=== PATIENT | male | born 1945 | race Hispanic/Latino ===

== ENCOUNTER 2019-07-02 13:39 | Emergency (ER) | payer OTHER | END 2019-07-02 16:31 | disposition home or self-care (01) | LOC: EDH 13:39 | DX: S83.92XA Sprain of unspecified site of left knee, initial encounter (principal); S70.02XA Contusion of left hip, initial encounter; S50.12XA Contusion of left forearm, initial encounter; E11.9 Type 2 diabetes mellitus without complications; I10 Essential (primary) hypertension; Z85.46 Personal history of malignant neoplasm of prostate; W18.39XA Other fall on same level, initial encounter; Y93.89 Activity, other specified; Y92.89 Other specified places as the place of occurrence of the external cause; Y99.8 Other external cause status | CPT/HCPCS: 29505; 73090; 73502; 73562 ==

== ENCOUNTER 2020-03-28 12:43 | Observation (INO) | payer OTHER, MEDICARE ==
[~2020-03-28] VITALS: Ht 182.9 cm; Wt 108.9 kg
[2020-03-28 13:05] LABS: BASOPHILS % (AUTO) 0.9 % (0.0-5.0); EOSINOPHILS % (AUTO) 4.5 % (0.0-8.0); HEMATOCRIT 42.3 % (42-54); LYMPHOCYTES % (AUTO) 33.3 % (21.0-51.0); MEAN CORPUSCULAR HEMOGLOBIN 29.1 pg (27.0-33.0); MEAN CORPUSCULAR HGB CONC 32.9 g/dL (32.0-36.0); MEAN CORPUSCULAR VOLUME 88.7 fL (79-99); MONOCYTES % (AUTO) 10.2 % (3.0-13.0); NEUTROPHILS % (AUTO) 50.9 % (40.0-77.0); PLATELET COUNT (AUTO) 242 K/uL (130-400); RED BLOOD CELL COUNT(AUTO) 4.77 MIL/uL (4.50-6.20); RED CELL DISTRIBUTION WIDTH 13.5 % (11.0-15.5); WHITE BLOOD COUNT (AUTO) 4.6 K/uL (4.8-10.8)
[2020-03-28] MEDS ORDERED: ASPIRIN 81MG CHEW TAB ONE (13:09)
[2020-03-28 13:28] LABS: CREATININE 1.2 mg/dL (0.5-1.5); POTASSIUM 4.2 mmol/L (3.5-5.1)
[2020-03-28 13:29] LABS: PROTHROMBIN TIME 10.9 SEC (9.6-11.6)
[2020-03-28 13:30] LABS: PARTIAL THROMBOPLASTIN TIME 26.6 SEC (26.3-35.5)
[2020-03-28 13:33] LABS: ALBUMIN 3.5 g/dL (3.5-5.0); BILIRUBIN,TOTAL 0.6 mg/dL (0.2-1.0); TOTAL PROTEIN, SERUM 6.7 g/dL (6.0-8.3)
[2020-03-28 13:41] LABS: B-TYPE NATRIURETIC PEPTIDE 34 pg/mL (0-100)
[2020-03-28] MEDS ORDERED: NITROGLYCERIN 1GM OINT 1 INCH/1GM TD ONE (14:16)
[2020-03-28] MEDS ORDERED: MORPHINE 2 MG SYG IVP PRN (15:30)
[2020-03-28] MEDS ORDERED: HYDRALAZINE 20MG/ML VIAL IV ONE (15:30)
[2020-03-28] MEDS ORDERED: DEXTROSE 50%-WATER 50 ML DISP.SYRIN IV PRN (15:30)
[2020-03-28] MEDS ORDERED: GLUCAGON 1MG KIT 1 MG ML IM PRN (15:30)
[2020-03-28] MEDS ORDERED: NITROGLYCERIN 1GM OINT 1 INCH/1GM TD SCH (15:30)
[2020-03-28] MEDS ORDERED: INSULIN HUMULIN R 100 UNIT/ML 3ML SQ SCH (16:30)
[2020-03-28 18:46] LABS: TROPONIN I 0.09 ng/mL (0.00-0.06)
[2020-03-29 01:50] LABS: HEMATOCRIT 40.2 % (42-54); MEAN CORPUSCULAR HEMOGLOBIN 29.5 pg (27.0-33.0); MEAN CORPUSCULAR HGB CONC 32.8 g/dL (32.0-36.0); MEAN CORPUSCULAR VOLUME 89.9 fL (79-99); RED BLOOD CELL COUNT(AUTO) 4.47 MIL/uL (4.50-6.20); RED CELL DISTRIBUTION WIDTH 13.8 % (11.0-15.5)
[2020-03-29 02:06] LABS: ALBUMIN 3.1 g/dL (3.5-5.0); BILIRUBIN,TOTAL 0.5 mg/dL (0.2-1.0); MAGNESIUM 2.2 mg/dL (1.80-2.40); POTASSIUM 3.9 mmol/L (3.5-5.1)
[2020-03-29] MEDS ORDERED: ATOR40TA71 PO (06:15)
[2020-03-29] MEDS ORDERED: ASPIRIN 81MG CHEW TAB PO SCH (09:00)
[2020-03-29] MEDS ORDERED: ENOXAPARIN SODIUM 40 MG/0.4 ML SYRINGE SQ SCH (09:00)
[2020-06-23] MEDS ORDERED: INSU3INS3 SQ (08:57)
[2020-06-23] MEDS ORDERED: METO-408 PO (08:57)
[2020-06-23] MEDS ORDERED: LOSA100T58 PO (08:57)
[2020-06-23] MEDS ORDERED: ASPI-449 PO (08:57)
[2020-06-23] MEDS ORDERED: METF-446 PO (08:57)
[2020-06-23] MEDS ORDERED: SEMA1PEN3 SQ (11:10)
[2020-06-23] MEDS ORDERED: OXYB-66 PO (11:10)
[2020-07-01] MEDS ORDERED: CLOP75TA14 PO (09:23)
[2020-07-01] MEDS ORDERED: LOSA25TA41 PO (09:23)
[2020-07-01] MEDS ORDERED: FURO20TA6 PO (09:23)
[2020-07-01] MEDS ORDERED: POTA-10 PO (09:26)
== END 2020-03-29 07:55 | disposition home or self-care (01) ==
LOC: EDH 12:43 → EDHIP 12:44 → INTOOBSV 12:44
PROVIDERS: ADMIT Internal Medicine; ATTEND Internal Medicine
DX: R07.89 Other chest pain (principal); E11.9 Type 2 diabetes mellitus without complications; E66.9 Obesity, unspecified; I10 Essential (primary) hypertension; E78.00 Pure hypercholesterolemia, unspecified; Z85.46 Personal history of malignant neoplasm of prostate; Z90.79 Acquired absence of other genital organ(s); Z79.82 Long term (current) use of aspirin; Z79.899 Other long term (current) drug therapy; Z68.32 Body mass index [BMI] 32.0-32.9, adult
CPT/HCPCS: 36415 ×2; 71045; 80053 ×2; 80061; 82550 ×2; 82948; 83036; 83735; 83874; 83880; 84484 ×3; 85025; 85027; 85610; 85730; 93005 ×2; 99285; G0378 ×17

== ENCOUNTER → 2020-09-21 | Outpatient (CLI) | payer OTHER ==
[~2020-09-21] MED LIST: ASPI-449 PO; ATOR40TA71 PO; CLOP75TA14 PO; FURO20TA6 PO; INSU3INS3 SQ; LOSA25TA41 PO; METF-446 PO; METO-408 PO; OXYB-66 PO; POTA-9 PO; SEMA1PEN3 SQ
== END | disposition home or self-care (01) ==
LOC: SHCH 15:18
PROVIDERS: ATTEND Internal Medicine Cardiovascular Disease
DX: I51.7 Cardiomegaly (principal); I49.01 Ventricular fibrillation
CPT/HCPCS: 93306; 93356

== ENCOUNTER → 2020-10-10 | Outpatient (CLI) | payer OTHER | END | disposition home or self-care (01) | LOC: RAH 15:20 | PROVIDERS: ATTEND Internal Medicine Cardiovascular Disease | DX: T81.30XD Disruption of wound, unspecified, subsequent encounter (principal); X58.XXXD Exposure to other specified factors, subsequent encounter | CPT/HCPCS: 71250 ==

== ENCOUNTER 2021-05-10 05:44 | Emergency (ER) | payer OTHER ==
[~2021-05-10] VITALS: Ht 182.9 cm; Wt 104.3 kg
[~2021-05-10 05:44] MED LIST changes: +POTA-10 PO; -POTA-9 PO
[2021-05-10] MEDS ORDERED: ONDANSETRON 4MG INJ IVP SCH (07:00)
[2021-05-10] MEDS ORDERED: 0.9% NACL 500ML IV.SOLN 500 ML IV SCH (07:00)
[2021-05-10] MEDS ORDERED: KETOROLAC 15MG/ML VIAL (15MG/ML) IV SCH (07:00)
[2021-05-10] MEDS ORDERED: HYDROCODONE/ACETAMINOPHEN 5/325 MG TAB PO SCH (07:00)
[2021-05-10 07:03] LABS: BASOPHILS % (AUTO) 0.4 % (0.0-5.0); EOSINOPHILS % (AUTO) 1.8 % (0.0-8.0); HEMATOCRIT 45.9 % (42-54); LYMPHOCYTES % (AUTO) 14.3 % (21.0-51.0); MEAN CORPUSCULAR HEMOGLOBIN 29.8 pg (27.0-33.0); MEAN CORPUSCULAR HGB CONC 32.9 g/dL (32.0-36.0); MEAN CORPUSCULAR VOLUME 90.5 fL (79-99); MONOCYTES % (AUTO) 9.1 % (3.0-13.0); NEUTROPHILS % (AUTO) 74.1 % (40.0-77.0); PLATELET COUNT (AUTO) 235 K/uL (130-400); RED BLOOD CELL COUNT(AUTO) 5.07 MIL/uL (4.50-6.20); RED CELL DISTRIBUTION WIDTH 13.5 % (11.0-15.5); WHITE BLOOD COUNT (AUTO) 9.2 K/uL (4.8-10.8)
[2021-05-10 07:20] LABS: ALBUMIN 3.5 g/dL (3.5-5.0); BILIRUBIN,TOTAL 0.6 mg/dL (0.2-1.0); CREATININE 1.1 mg/dL (0.5-1.5); POTASSIUM 4.4 mmol/L (3.5-5.1); TOTAL PROTEIN, SERUM 7.3 g/dL (6.0-8.3)
[2021-05-10] MEDS ORDERED: CLINDAMYCIN IVPB 900MG/50ML 50 ML IV SCH (07:30)
[2021-05-10] MEDS ORDERED: ORPH-43 PO (07:31)
[2021-05-10] MEDS ORDERED: CLIN-141 PO (07:31)
[2021-05-10] MEDS ORDERED: ACET1TAB25 PO (07:31)
[2021-05-10 08:19] VITALS: BP 152/69
== END 2021-05-10 08:28 | disposition home or self-care (01) ==
LOC: EDH 05:44
DX: I88.9 Nonspecific lymphadenitis, unspecified (principal); H66.91 Otitis media, unspecified, right ear; Z20.822 Contact with and (suspected) exposure to COVID-19; I25.10 Atherosclerotic heart disease of native coronary artery without angina pectoris; E11.9 Type 2 diabetes mellitus without complications; I10 Essential (primary) hypertension; Z79.899 Other long term (current) drug therapy; Z79.82 Long term (current) use of aspirin; Z79.4 Long term (current) use of insulin; Z79.84 Long term (current) use of oral hypoglycemic drugs; Z98.890 Other specified postprocedural states; Z60.2 Problems related to living alone
CPT/HCPCS: 36415; 70486; 71045; 80053; 83605; 85025; 87040 ×2; 87635; 87804 ×2; 96365; 96375; 99285; C9803; J1885; J2405; J3490; J7040

== ENCOUNTER 2021-09-24 18:34 | Emergency (ER) | payer OTHER ==
[~2021-09-24] VITALS: Ht 182.9 cm; Wt 99.8 kg
[~2021-09-24 18:34] MED LIST changes: +ACET-2079 PO; +CLIN-141 PO; +ORPH-43 PO; -POTA-10 PO; +POTA-200 PO
[2021-09-24] MEDS ORDERED: ACETAMINOPHEN 500 MG TABLET ONE (19:35)
[2021-09-24] MEDS ORDERED: 0.9%NACL 1000ML 1,000 ML IV ONE (20:00)
[2021-09-24] MEDS ORDERED: ACETAMINOPHEN 500 MG TABLET PO ONE (20:00)
[2021-09-24] MEDS ORDERED: KETOROLAC 15MG/ML VIAL (15MG/ML) IV ONE (20:00)
[2021-09-24 20:13] LABS: BASOPHILS % (AUTO) 0.3 % (0.0-5.0); HEMATOCRIT 38.6 % (42-54); LYMPHOCYTES % (AUTO) 14.9 % (21.0-51.0); MEAN CORPUSCULAR HEMOGLOBIN 30.3 pg (27.0-33.0); MEAN CORPUSCULAR HGB CONC 34.5 g/dL (32.0-36.0); MEAN CORPUSCULAR VOLUME 87.9 fL (79-99); MONOCYTES % (AUTO) 12.3 % (3.0-13.0); NEUTROPHILS % (AUTO) 72.2 % (40.0-77.0); PLATELET COUNT (AUTO) 202 K/uL (130-400); RED BLOOD CELL COUNT(AUTO) 4.39 MIL/uL (4.50-6.20); WHITE BLOOD COUNT (AUTO) 5.9 K/uL (4.8-10.8)
[2021-09-24 20:28] LABS: CREATININE 1.4 mg/dL (0.5-1.5); POTASSIUM 3.9 mmol/L (3.5-5.1)
[2021-09-24 20:33] LABS: ALBUMIN 2.8 g/dL (3.5-5.0); TOTAL PROTEIN, SERUM 6.8 g/dL (6.0-8.3)
[2021-09-24 20:37] LABS: B-TYPE NATRIURETIC PEPTIDE 62 pg/mL (0-100)
[2021-09-24 22:04] VITALS: BP 125/59
[2021-09-24 22:06] LABS: APPEARANCE,URINE SL CLOUDY (CLEAR); BILIRUBIN,URINE SMALL (NEGATIVE); COLOR,URINE YELLOW (YELLOW); GLUCOSE, URINE (UA) >=1000 mg/dL (NEGATIVE); KETONES,URINE 5 mg/dL (NEGATIVE); LEUKOCYTE ESTERASE ,URINE NEGATIVE (NEGATIVE); NITRATE,URINE NEGATIVE (NEGATIVE); OCCULT BLOOD,URINE SMALL (NEGATIVE); PH,URINE 5.5 (5.0-8.0); PROTEIN,URINE 30 mg/dL (NEGATIVE)
[2021-09-24] MEDS ORDERED: ACET-66 PO (22:16)
[2021-09-24] MEDS ORDERED: DOXY-336 PO (22:16)
[2021-09-24] MEDS ORDERED: IBUP-2070 PO (22:16)
[2021-09-24 22:17] LABS: BACTERIA,URINE Few /HPF (None Seen); MUCUS,URINE Moderate LPF (None Seen); RBC,URINE 0-1 /HPF (0-1); SQUAMOUS EPITHELIAL CELL,UR Rare /HPF (0-2); WBC,URINE 0-1 /HPF (0-1)
[2021-09-27 03:09] LABS: HEPATITIS A ANTIBODY IGM Negative (Negative); HEPATITIS B CORE IGM Negative (Negative); HEPATITIS Bs ANTIGEN SCREEN P Negative (Negative); HEPATITIS C VIRUS ANTIBODY 0.1 s/co ratio (0.0-0.9)
== END 2021-09-24 22:27 | disposition home or self-care (01) ==
LOC: EDH 18:34
DX: R50.9 Fever, unspecified (principal); Z20.822 Contact with and (suspected) exposure to COVID-19; E11.9 Type 2 diabetes mellitus without complications; I10 Essential (primary) hypertension; I25.10 Atherosclerotic heart disease of native coronary artery without angina pectoris; Z79.4 Long term (current) use of insulin; Z79.82 Long term (current) use of aspirin; Z79.899 Other long term (current) drug therapy; Z85.46 Personal history of malignant neoplasm of prostate; Z95.1 Presence of aortocoronary bypass graft
CPT/HCPCS: 99284; 96374; 71045; 87635; 96361; 80053; 83880; 85025; 87040 ×2; 87088; 86308; 87804 ×2; 83605; 87340; 86705; 86709; 81001; 36415; 84145; C9803; J7030; J1885